=== PATIENT | male | born 2000 | race Caucasian/White ===

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

== ENCOUNTER 2023-01-19 06:59 | Inpatient (IN) | payer OTHER, BC ==
[2023-01-19] MEDS ORDERED: fentaNYL 50 mcg/mL 1 mL Vial ONE ×5 (07:05→12:11)
[2023-01-19] MEDS ORDERED: Vancomycin 1 GM/200 ML (FROZEN) BAG ONE (07:12)
[2023-01-19] MEDS ORDERED: Ketorolac Tromethamine 30 MG/ML VIAL ONE (07:27)
[2023-01-19 07:59] LABS: #Basophils 0.1 thou/uL (0.0-0.2); #Eosinphils 0.1 thou/uL (0.0-0.7); #Monocytes 0.8 thou/uL (0.11-0.59); #Neutrophils 15.1 thou/uL (1.40-6.50); %Basophils 0.3 % (0.0-1.0); %Eosinophils 0.6 % (0.0-10.0); %Lymphocytes 18.4 % (21.0-51.0); %Monocytes 3.8 % (0.0-10.0); %Neutrophils 76.4 % (42.0-75.0); Hematocrit 44.3 % (42.0-52.0); Hemoglobin 15.8 g/dL (14.0-18.0); Mean Corpuscular HGB CONC 35.7 g/dL (32.0-36.0); Mean Corpuscular Volume 86.9 fl (78.0-98.0); Mean Platelet Volume 12.4 fL (7.4-10.4); Platelet Count 185 10x3/uL (130-400); RBC Distribution Width 11.3 % (11.5-14.5); White Blood Cell (WBC) Count 19.7 10x3/uL (4.8-10.8)
[2023-01-19 08:01] LABS: INR-International Normal Ratio 1.3; PTT 24.3 sec (22.9-36.1); Prothrombin Time 17.2 sec (12.0-14.7)
[2023-01-19 08:06] LABS: Acetaminophen Less than 10 mcg/mL (10.0-30.0); Alcohol Less than 10.0 mg/dL (Less than 10); Salicylate Less than 8.0 mg/dL (15.0-30.0)
[2023-01-19] MEDS ORDERED: Ondansetron PF 4 MG/2 ML Vial ONE ×4 (08:07→15:32)
[2023-01-19 08:20] LABS: ALT (SGPT) 39 U/L (8-55); AST (SGOT) 67 U/L (5-34); Alkaline Phosphatase 88 U/L (40-110); Anion Gap 18 mmol/L (10-20); BUN (Urea Nitrogen) 8 mg/dL (8.9-20.6); Bilirubin, Total 2.7 mg/dL (0.2-1.2); Calc. Creatinine Clearance 0 mL/min (70-130); Calcium 8.8 mg/dL (7.8-10.44); Carbon Dioxide 17 mmol/L (22-29); Chloride 105 mmol/L (98-107); Estimated GFR 104; Globulin 2.6 g/dL (2.4-3.5); Glucose 227 mg/dL (70-105); Potassium 2.9 mmol/L (3.5-5.1); Protein, Total 6.6 g/dL (6.0-8.3); Sodium 137 mmol/L (136-145)
[2023-01-19] MEDS ORDERED: HYDROmorphone 0.5 MG/0.5 ML SYRINGE ONE ×2 (08:20→10:07)
[2023-01-19] MEDS ORDERED: metroNIDAZOLE 500 MG/100 ML BAG ONE (08:26)
[2023-01-19 09:13] LABS: SARS-CoV-2 NAA Rapid Test Not Detected (NotDetected)
[2023-01-19 10:23] LABS: Amphetamine Not Detected (NotDetected); Barbiturates Screen Not Detected (NotDetected); Benzodiazepine Screen Not Detected (NotDetected); Cocaine Metabolite Screen Not Detected (NotDetected); Methadone Not Detected (NotDetected); Methamphetamine Not Detected (NotDetected); Opiate Screen Detected (NotDetected); Oxycodone Screen Not Detected (NotDetected); Phencyclidine (PCP) Not Detected (NotDetected); THC/Cannabinoid Screen Detected (NotDetected); Tricyclic Screen Not Detected (NotDetected)
[2023-01-19 11:00] LABS: Lactic Acid 2.4 mmol/L (0.5-2.2)
[2023-01-19] MEDS ORDERED: Iopamidol-370 76% 500 ML MDV (1 ML CHARGE) ONE (11:10)
[2023-01-19] MEDS ORDERED: Albumin 5% 500 ML ONE (12:22)
[2023-01-19] MEDS ORDERED: hydrALAZINE 20 MG/ML VIAL ONE (12:22)
[2023-01-19] MEDS ORDERED: Rocuronium Bromide 10 MG/ML (10ML VIAL) ONE ×2 (12:32→13:16)
[2023-01-19] MEDS ORDERED: Succinylcholine 200 MG/10 ml SYRINGE FS ONE ×2 (12:32→13:16)
[2023-01-19] MEDS ORDERED: Lidocaine 1% PF 5 ML VIAL ONE ×2 (12:32→13:16)
[2023-01-19] MEDS ORDERED: fentaNYL PF 100 MCG/2 ML SYRINGE ONE (12:33)
[2023-01-19] MEDS ORDERED: PROPOFOL 20 ML ONE (12:33)
[2023-01-19] MEDS ORDERED: CEFAZOLIN 2 GM VIAL ONE (12:51)
[2023-01-19] MEDS ORDERED: Sodium Chloride 0.9% 100 ML ONE (12:52)
[2023-01-19] MEDS ORDERED: PHENYLEPHRINE-NS 100 MCG/ML 10 ML SYRINGE ONE (13:16)
[2023-01-19] MEDS ORDERED: Glycopyrrolate 0.2 MG/ML 5 ML SYRINGE ONE ×2 (13:16→14:56)
[2023-01-19] MEDS ORDERED: PROPOFOL 200 MG/20 ML VIAL ONE (13:16)
[2023-01-19] MEDS ORDERED: NEOSTIGMINE 3 MG/3 ML SYR 3 MG/3 ML SYRINGE ONE ×2 (13:16→14:56)
[2023-01-19] MEDS ORDERED: HYDROmorphone 2 MG/ML VIAL SLOW IVP PRN (14:04)
[2023-01-19] MEDS ORDERED: Meperidine HCl/PF 25 MG/ML VIAL SLOW IVP PRN (14:04)
[2023-01-19] MEDS ORDERED: Promethazine HCl 25 MG/ML VIAL IM PRN (14:04)
[2023-01-19] MEDS ORDERED: Ondansetron HCl/PF 4 MG/2 ML Vial IVP PRN (14:04)
[2023-01-19] MEDS ORDERED: Dexamethasone 4 mg/ml Vial ONE (14:54)
[2023-01-19] MEDS ORDERED: Meperidine HCl/PF 25 MG/ML VIAL ONE (15:27)
[2023-01-19 17:00] VITALS: BMI 24.8
[2023-01-19] MEDS ORDERED: Ondansetron PF 4 MG/2 ML Vial IVP PRN (17:17)
[2023-01-19] MEDS ORDERED: Electrolyte Replacement Protocol 1 EACH IVPB ONE (17:17)
[2023-01-19] MEDS ORDERED: HYDROcodone/Acetaminophen 10/325 mg Tablet PO PRN ×2 (17:19)
[2023-01-19] MEDS ORDERED: Cyclobenzaprine 10 MG TAB PO PRN (17:19)
[2023-01-19] MEDS ORDERED: Morphine 2 MG/ML VIAL SLOW IVP PRN (17:21)
[2023-01-19] MEDS ORDERED: Acetaminophen 500 MG TAB PO SCH (17:30)
[2023-01-19] MEDS ORDERED: Electrolyte Replacement Protocol FS PRN (17:30)
[2023-01-19] MEDS: Acetaminophen 325 MG TAB PO SCH (17:44)
[2023-01-19] MEDS ORDERED: ACTIVE PCA FS PRN (17:45)
[2023-01-19] MEDS: Lactated Ringer's 1,000 ML IV SCH (17:52)
[2023-01-19] MEDS: Nicotine 14 MG PATCH TD SCH (19:49)
[2023-01-19] MEDS: Famotidine/PF 20 mg/2ml Vial SLOW IVP SCH (20:02)
[2023-01-19] MEDS: Senokot S 8.6-50 MG TAB PO SCH (20:07)
[2023-01-19 21:10] LABS: Hemoglobin 10.5 g/dL (14.0-18.0)
[2023-01-19] MEDS ORDERED: CEFAZOLIN 2 GM in Sodium Chloride 0.9% 100 ML IVPB SCH (22:00)
[2023-01-20] MEDS: Acetaminophen 325 MG TAB PO SCH ×4 (00:24→17:58)
[2023-01-20 05:33] LABS: #Monocytes 0.9 thou/uL (0.11-0.59); #Neutrophils 5.3 thou/uL (1.40-6.50); %Lymphocytes 12.2 % (21.0-51.0); %Monocytes 12.2 % (0.0-10.0); %Neutrophils 75.3 % (42.0-75.0); Hemoglobin 10.8 g/dL (14.0-18.0); Mean Corpuscular Hemoglobin 31.1 pg (27.0-31.0); Mean Corpuscular Volume 86.5 fl (78.0-98.0); Mean Platelet Volume 11.9 fL (7.4-10.4); Platelet Count 112 10x3/uL (130-400); RBC Distribution Width 11.7 % (11.5-14.5); Red Blood Cell (RBC) Count 3.47 mill/uL (4.70-6.10); White Blood Cell (WBC) Count 7.1 10x3/uL (4.8-10.8)
[2023-01-20] MEDS: Lactated Ringer's 1,000 ML IV SCH ×2 (05:42→23:04)
[2023-01-20 05:58] LABS: ALT (SGPT) 23 U/L (8-55); AST (SGOT) 56 U/L (5-34); Albumin 3.5 g/dL (3.5-5.0); Alkaline Phosphatase 51 U/L (40-110); Anion Gap 11 mmol/L (10-20); BUN (Urea Nitrogen) 7 mg/dL (8.9-20.6); Bilirubin, Total 2.9 mg/dL (0.2-1.2); Calc. Creatinine Clearance 133 mL/min (70-130); Calcium 8.5 mg/dL (7.8-10.44); Carbon Dioxide 24 mmol/L (22-29); Chloride 105 mmol/L (98-107); Estimated GFR 126; Globulin 2.2 g/dL (2.4-3.5); Glucose 136 mg/dL (70-105); Potassium 4.2 mmol/L (3.5-5.1); Protein, Total 5.7 g/dL (6.0-8.3); Sodium 136 mmol/L (136-145)
[2023-01-20] MEDS ORDERED: CEFAZOLIN 2 GM in Sodium Chloride 0.9% 100 ML IVPB SCH (08:00)
[2023-01-20] MEDS: Senokot S 8.6-50 MG TAB PO SCH ×2 (08:45→20:08)
[2023-01-20] MEDS: Famotidine/PF 20 mg/2ml Vial SLOW IVP SCH ×2 (08:45→20:08)
[2023-01-20] MEDS: Polyethylene Glycol 3350 17 GM Packet PO SCH (08:45)
[2023-01-20 10:33] LABS: Hematocrit 32.5 % (42.0-52.0); Hemoglobin 11.6 g/dL (14.0-18.0)
[2023-01-20] MEDS: Nicotine 14 MG PATCH TD SCH (20:26)
[2023-01-20 22:48] LABS: Hematocrit 28.9 % (42.0-52.0); Hemoglobin 10.5 g/dL (14.0-18.0)
[2023-01-21] MEDS: Acetaminophen 325 MG TAB PO SCH ×4 (00:18→16:56)
[2023-01-21 05:26] LABS: #Monocytes 0.5 thou/uL (0.11-0.59); #Neutrophils 4.2 thou/uL (1.40-6.50); %Basophils 0.3 % (0.0-1.0); %Eosinophils 0.7 % (0.0-10.0); %Lymphocytes 17.5 % (21.0-51.0); %Monocytes 9.1 % (0.0-10.0); %Neutrophils 72.1 % (42.0-75.0); Hematocrit 27.1 % (42.0-52.0); Hemoglobin 9.8 g/dL (14.0-18.0); Mean Corpuscular HGB CONC 36.2 g/dL (32.0-36.0); Mean Corpuscular Hemoglobin 30.7 pg (27.0-31.0); Mean Platelet Volume 11.4 fL (7.4-10.4); Platelet Count 117 10x3/uL (130-400); RBC Distribution Width 11.5 % (11.5-14.5); Red Blood Cell (RBC) Count 3.19 mill/uL (4.70-6.10); White Blood Cell (WBC) Count 5.8 10x3/uL (4.8-10.8)
[2023-01-21 05:53] LABS: ALT (SGPT) 14 U/L (8-55); AST (SGOT) 41 U/L (5-34); Albumin 3.3 g/dL (3.5-5.0); Alkaline Phosphatase 54 U/L (40-110); Anion Gap 10 mmol/L (10-20); BUN (Urea Nitrogen) 7 mg/dL (8.9-20.6); Bilirubin, Total 2.9 mg/dL (0.2-1.2); Calc. Creatinine Clearance 139 mL/min (70-130); Calcium 8.7 mg/dL (7.8-10.44); Carbon Dioxide 27 mmol/L (22-29); Chloride 102 mmol/L (98-107); Estimated GFR 128; Globulin 2.5 g/dL (2.4-3.5); Glucose 128 mg/dL (70-105); Potassium 3.6 mmol/L (3.5-5.1); Protein, Total 5.8 g/dL (6.0-8.3); Sodium 135 mmol/L (136-145)
[2023-01-21 08:51] LABS: Hemoglobin 9.8 g/dL (14.0-18.0)
[2023-01-21] MEDS ORDERED: Acetaminophen 325 MG TAB PO PRN (09:32)
[2023-01-21] MEDS ORDERED: Acetaminophen/Codeine 30-300mg Tablet PO PRN (09:33)
[2023-01-21] MEDS ORDERED: Morphine 2 MG/ML VIAL SLOW IVP PRN (09:34)
[2023-01-21] MEDS: Polyethylene Glycol 3350 17 GM Packet PO SCH (09:40)
[2023-01-21] MEDS: Famotidine/PF 20 mg/2ml Vial SLOW IVP SCH (09:40)
[2023-01-21] MEDS: Senokot S 8.6-50 MG TAB PO SCH (09:40)
[2023-01-21] MEDS: HYDROcodone/Acetaminophen 10/325 mg Tablet PO PRN ×2 (10:29→16:00)
[2023-01-21] MEDS: Lactated Ringer's 1,000 ML IV SCH (10:46)
[2023-01-21 12:13] VITALS: BP 125/68; TEMP 98.5
[2023-01-21] MEDS ORDERED: Ibuprofen 600 MG TAB PO PRN (12:54)
== END 2023-01-21 18:45 | disposition home or self-care (01) | DRG 958 ==
LOC: ERS 06:59 → SDC 11:17 → CCU 11:58 → SURG B 01-20 14:40
PROVIDERS: ADMIT Surgery; ATTEND Surgery
PROC: 0SSJ0ZZ Reposition Left Tarsal Joint, Open Approach (ICD-10-PCS; principal; 2023-01-19)
PROC: 0LQW0ZZ Repair Left Foot Tendon, Open Approach (ICD-10-PCS; 2023-01-19)
PROC: 0LDR0ZZ Extraction of Left Knee Tendon, Open Approach (ICD-10-PCS; 2023-01-19)
PROC: 0HQHXZZ Repair Right Upper Leg Skin, External Approach (ICD-10-PCS; 2023-01-19)
PROC: 30233J1 Transfusion of Nonautologous Serum Albumin into Peripheral Vein, Percutaneous Approach (ICD-10-PCS; 2023-01-19)
DX: S93.05XA Dislocation of left ankle joint, initial encounter (principal); S36.899A Unspecified injury of other intra-abdominal organs, initial encounter; D62 Acute posthemorrhagic anemia; S37.012A Minor contusion of left kidney, initial encounter; S82.002B Unspecified fracture of left patella, initial encounter for open fracture type I or II; S82.892B Other fracture of left lower leg, initial encounter for open fracture type I or II; S93.04XA Dislocation of right ankle joint, initial encounter; E87.6 Hypokalemia; S96.012A Strain of muscle and tendon of long flexor muscle of toe at ankle and foot level, left foot, initial encounter; V49.9XXA Car occupant (driver) (passenger) injured in unspecified traffic accident, initial encounter; Z11.52 Encounter for screening for COVID-19
CPT/HCPCS: 27840; 36415; 51702; 70450; 71045; 71260; 72125; 74176; 74177; 75635; 80053; 80306; 80307; 83605; 85014; 85018; 85025; 85610; 85730; 86850; 86900; 86901; 90471; 93005; 96365; 96366; 96367; 96375; 96376; 99152; G0390; J0360; J1100; J1170; J1885; J2175; J2270; J2405; J2704; J3010; J3370-JW; J3490; J7070; J7120; P9045; Q9967; S0028; U0002